=== PATIENT | female | born 1990 | race Caucasian/White ===

== ENCOUNTER 2021-05-04 12:24 | Emergency (ER) | payer SELFPAY ==
[2021-05-04 12:35] VITALS: BP 106/71; PULSE 82; RESP 18; TEMP 36.9; O2SAT 97; BMI 27.1
--- NOTE | 2021-05-04 13:12 | ED_ITS ---
HPI - Abdominal Pain General: Chief Complaint: Abdominal Pain Stated Complaint: COVID +, sharp stomach pains Time Seen by Provider: 05/04/21 13:12 History of Present Illness: HPI narrative: Ms. Higuera is a 31-year-old lady with past medical history of migraines and recent diagnosis of COVID-19 who presents to the emergency department due to abdominal pain. She first started having fairly typical Covid symptoms approximately 1 week ago and tested positive at [facility]. Approximately 4 days ago she developed gradual onset worsening epigastric abdominal pain associated with diarrhea and nausea. She describes the vomit as nonbloody however it is foamy. She has tried home medications without significant relief. Her symptoms are now moderate to severe in intensity. She still has cough and generalized malaise however the abdominal discomfort is what brought her in today. Her symptoms are worse with movement. She has tried home treatments including Zofran with only minimal relief. No other specific exacerbating or relieving factors that she identifies. She does have a history of abdominal surgeries with bilateral tubal ligation. She has also had a tummy tuck . Review of Systems General: Reports: 10 or more systems reviewed and unremarkable except in HPI and below Narrative: CONSTITUTIONAL: denies fever, fatigue, weakness EYES - denies pain, denies loss of vision EARS - denies ear issues. NOSE - denies congestion or rhinorrhea. THROAT - denies sore throat or difficulty swallowing. CARDIOVASCULAR - denies chest pain and palpitations RESPIRATORY - denies shortness of breath and cough GASTROINTESTINAL -see HPI GENITOURINARY - denies dysuria or urinary frequency MUSCULOSKELETAL- denies deformity or pain SKIN - denies rashes or new changed skin lesions NEUROLOGIC - denies focal weakness or sensory changes HEMATOLOGIC/LYMPHATIC - denies easy bruising or lymphadenopathy. Physical Exam Narrative: EXAM NARRATIVE: GENERAL/CONSTITUTIONAL - well-appearing. Discomfo rt visible due to pain. Eyes - PERRL, no conjunctival injection ENMT - Atraumatic external nose and ears. Moist mucous membranes NECK - supple. trachea midline CARDIOVASCULAR - regular rate and rhythm. Peripheral pulses 2+ and equal RESPIRATORY -clear to auscultation bilaterally. No retractions or accessory muscle use. ABDOMEN/GI - there is generalized tenderness to palpation in all quadrants including to light to moderate palpation. Patient reports pain increases with percussion, no evidence of surgical abdomen however. MSK - Extremities without obvious deformity or tenderness to palpation SKIN - Warm, Dry NEURO - alert and appropriately oriented. strength and sensation intact. Moves all extremities equally. PSYCH - Appropriate mood and affect Course ED course: - Patient was seen and evaluated by me at bedside - Patient placed on cardiac monitors, IV access obtained - Initial evaluation notable for uncomfortable appearance, abdominal exam as noted above. - Labs and imaging obtained and reviewed - Fluids, analgesia given - Labs notable for leukopenia and thrombocytopenia which is commonly seen with COVID-19 as reported in history. No significant metabolic abnormality. No evidence of urinary tract infection. hCG negative. - Imaging notable for no acute abnormality to explain patient's symptoms. - Upon serial reexamination after treatment the patient was mildly improved - Based on patient history, evaluation, labs, and imaging as interpreted the most likely cause of the patient's condition is nonspecific abdominal pain which may be related to COVID-19 - The results of ED evaluation were discussed with the patient including prescriptions and/or symptomatic cares (if applicable) including appropriate and responsible use, followup plan, and return precautions. The patient verbalized understanding and felt safe for discharge. - Patient discharged in satisfactory condition. Vital Signs: Vital signs: Vital Signs Temperature 98.8 F 05/04/21 15:33 Pulse Rate 72 05/04/21 15:33 Respiratory Rate 16 05/04/21 15:33 Blood Pressure 100/62 05/04/21 15:33 Pulse Oximetry 97 05/04/21 15:33 MDM - Abdominal Pain Medical Records: Attestation: I reviewed the patient's medical records. Lab Data: Attestation: I reviewed the patient's lab results. Labs: Lab Results 05/04/21 05/04/21 05/04/21 Range/Units 13:40 13:40 13:40 WBC 2.2 L (4.0-10.0) 10^3/ uL RBC 4.90 (4.1-5.3) 10^6/u L Hgb 13.6 (11.5-15.3) g/dL Hct 42.4 (37.0-47.0) % MCV 86.5 (81-99) fl MCH 27.8 L (28.0-34.0) pg MCHC 32.1 (30.0-36.0) g/dL RDW 14.7 (12.1-15.1) % Plt Count 123 L (130-400) 10^3/c mm MPV 11.8 H (7.4-10.4) fL Neut % (Auto) 65.7 % Lymph % (Auto) 29.7 % [place] % (Auto) 4.1 % Eos % (Auto) 0.5 % Baso % (Auto) 0.0 % Neut # (Auto) 1.44 L (1.8-7.7) 10^3/u L Lymph # (Auto) 0.7 L (0.8-4.8) 10^3/u L [place] # (Auto) 0.1 L (0.2-0.9) 10^3/u L Eos # (Auto) 0.0 (0.0-0.8) 10^3/u L Baso # (Auto) 0.0 (0.0-0.1) 10^3/u L Nucleated RBC % (a uto) 0 % Nucleated RBCs # 0.0 /100WBC Sodium 139 (136-145) mmol/L Potassium 3.6 (3.5-5.1) mmol/L Chloride 103 (98-107) mmol/L Carbon Dioxide 26 (22-29) mmol/L Anion Gap 13.6 (5-19) BUN 10 (6-20) mg/dL Creatinine 0.6 (0.5-0.9) mg/dL GFR Calculation 116.6 (90-130) mL/min Glucose 91 (65-115) mg/dL Calculated Osmolal ity 287 (285-295) mOsm/k g Lactate 1.0 (0.5-2.2) mmol/L Calcium 7.9 L (8.5-10.5) mg/dL Total Bilirubin 0.4 (0.15-1.2) mg/dL AST 28 (0-32) U/L ALT 15 (0-33) U/L Alkaline Phosphata se 65 (35-105) IU/L Total Protein 7.4 (6.6-8.7) g/dL Albumin 4.1 (3.5-5.2) g/dL Globulin 3.3 (1.3-4.6) g/dL Lipase 39 (13-60) U/L HCG, Qual (Negative) Urine Color (Yellow) Urine Appearance (CLEAR) Urine pH (5-7) Ur Specific Gravit y (1.005-1.030) Urine Protein (Negative) Urine Glucose (UA) (Normal) Urine Ketones (Negative) Urine Blood (Negative) Urine Nitrate (Negative) Urine Bilirubin (Negative) Prot Sulfosalicyli c Acd (Negative) Urine Urobilinogen (Negative) mg/dL Ur Leukocyte Adriana ase (Negative) 05/04/21 05/04/21 Range/Units 13:40 13:40 WBC (4.0-10.0) 10^3/ uL RBC (4.1-5.3) 10^6/u L Hgb (11.5-15.3) g/dL Hct (37.0-47.0) % MCV (81-99) fl MCH (28.0-34.0) pg MCHC (30.0-36.0) g/dL RDW (12.1-15.1) % Plt Count (130-400) 10^3/c mm MPV (7.4-10.4) fL Neut % (Auto) % Lymph % (Auto) % [place] % (Auto) % Eos % (Auto) % Baso % (Auto) % Neut # (Auto) (1.8-7.7) 10^3/u L Lymph # (Auto) (0.8-4.8) 10^3/u L [place] # (Auto) (0.2-0.9) 10^3/u L Eos # (Auto) (0.0-0.8) 10^3/u L Baso # (Auto) (0.0-0.1) 10^3/u L Nucleated RBC % (a uto) % Nucleated RBCs # /100WBC Sodium (136-145) mmol/L Potassium (3.5-5.1) mmol/L Chloride (98-107) mmol/L Carbon Dioxide (22-29) mmol/L Anion Gap (5-19) BUN (6-20) mg/dL Creatinine (0.5-0.9) mg/dL GFR Calculation (90-130) mL/min Glucose (65-115) mg/dL Calculated Osmolal ity (285-295) mOsm/k g Lactate (0.5-2.2) mmol/L Calcium (8.5-10.5) mg/dL Total Bilirubin (0.15-1.2) mg/dL AST (0-32) U/L ALT (0-33) U/L Alkaline Phosphata se (35-105) IU/L Total Protein (6.6-8.7) g/dL Albumin (3.5-5.2) g/dL Globulin (1.3-4.6) g/dL Lipase (13-60) U/L HCG, Qual Negative (Negative) Urine Color Yellow (Yellow) Urine Appearance Clear (CLEAR) Urine pH 9 H (5-7) Ur Specific Gravit y 1.010 (1.005-1.030) Urine Protein Neg (Negative) Urine Glucose (UA) Norm (Normal) Urine Ketones 1+ H (Negative) Urine Blood Neg (Negative) Urine Nitrate Negative (Negative) Urine Bilirubin Neg (Negative) Prot Sulfosalicyli c Acd Negative (Negative) Urine Urobilinogen Neg (Negative) mg/dL Ur Leukocyte Adriana ase Negative (Negative) Discharge Plan Discharge Patient Disposition: Home Clinical Impression: Abdominal pain in female, COVID-19 Condition: Stable Prescriptions: No Action Zofran 4 mg Tablet 4 mg PO Q6H PRN (Reason: NAUSEA/VOMITING) RF: 0 Mucinex 1,200 mg Tablet Extended Release 12hr 1,200 mg PO BID RF: 0 Prevacid 30 mg capsule,delayed release(DR/EC) 30 mg PO DAILY Qty: 30 RF: 0 Carafate 1 gram tablet 1 g PO TID 28 Days Qty: 84 RF: 0 ketoconazole 2 % shampoo 1 applic TOPICAL .COMPELX RF: 0 acetaminophen [Tylenol Extra Strength] 500 mg Tablet 1,000 mg PO Q4H PRN (Reason: Pain) RF: 0 gabapentin 300 mg capsule 300 mg PO TID PRN (Reason: NERVE PAIN) RF: 0 topiramate 100 mg tablet 100 mg PO BEDTIME RF: 0 spironolactone 50 mg tablet 50 mg PO BEDTIME RF: 0 topiramate 50 mg tablet 50 mg PO DAILY RF: 0 Discharge Orders: Discharge ED (Routine); Ordered 05/04/21 Ordered By: Dickson Guerrero Discharge Diet: Advance as tolerated and Clear Liquid Discharge Activity: Resume usual activity Patient Instructions: Viral Syndrome (ED), Abdominal Pain (ED) Activity Restrictions/Additional Instructions: Thank you for visiting the emergency department. You were seen and evaluated for abdominal pain. Your labs were slightly abnormal however fairly consistent with your known COVID-[address] did not demonstrate any obvious cause of your abdominal pain. You may use [id number] medications for your symptoms however please avoid NSAIDs. I recommend a clear liquid diet for the next day and then advance slowly as tolerated. Please ensure that you are staying hydrated. Please return to the emergency department as discussed for anything that you are concerned about and feel needs emergency department evaluation. 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
[2021-05-04 13:38] VITALS: BP 100/68; PULSE 80; RESP 16; TEMP 37.1; O2SAT 99
[2021-05-04 13:52] LABS: Add Urine Microscopic? NO; Charge for UA Resulting for Rev
[2021-05-04 13:54] LABS: Eosinophils % 0.5 %; HCG Qualitative Urine. Negative (Negative); Hematocrit 42.4 % (37.0-47.0); Hemoglobin 13.6 g/dL (11.5-15.3); Lymphocytes # 0.7 10^3/uL (0.8-4.8); Lymphocytes % 29.7 %; Mean Corpuscular HGB Conc 32.1 g/dL (30.0-36.0); Mean Corpuscular Hemoglobin 27.8 pg (28.0-34.0); Mean Corpuscular Volume 86.5 fl (81-99); Mean Platelet Volume 11.8 fL (7.4-10.4); Monocytes # 0.1 10^3/uL (0.2-0.9); Monocytes % 4.1 %; Neutrophils # 1.44 10^3/uL (1.8-7.7); Neutrophils % 65.7 %; Nucleated Red Blood Cells % 0 %; Platelet Count 123 10^3/cmm (130-400); Red Cell Distribution Width 14.7 % (12.1-15.1); Urine Appearance Clear (CLEAR); Urine Color Yellow (Yellow); White Blood Count 2.2 10^3/uL (4.0-10.0)
[2021-05-04 13:55] LABS: Bilirubin Urine Neg (Negative); Blood Urine Neg (Negative); Glucose Urine UA Norm (Normal); Ketones Urine 1+ (Negative); Leukocyte Esterase Urine Negative (Negative); Nitrate Urine Negative (Negative); Protein Urine Neg (Negative); Sulfosalicylic Acid Urine Negative (Negative); Urobilinogen Urine Neg (Negative); pH Urine 9 (5-7)
[2021-05-04 13:59] VITALS: RESP 16
[2021-05-04] MEDS: lactated ringers 1,000 ML 999 ML IV (13:59)
[2021-05-04] MEDS: morphine 4 mg/mL SDV 1 mL IVP (13:59)
[2021-05-04] MEDS: lidocaine 2% viscous 15 ML, aluminum-mag hydrox-simethicon 30 ML, sucralfate oral liq 1 GM PO (14:00)
[2021-05-04] MEDS: ondansetron 2 mg/ML SDV 2 mL 4 MG IVP (14:00)
[2021-05-04 14:10] VITALS: BP 101/64; PULSE 72; RESP 16; TEMP 37.1; O2SAT 97
[2021-05-04 14:10] LABS: Alanine Aminotransferase 15 U/L (0-33); Albumin Level 4.1 g/dL (3.5-5.2); Alkaline Phosphatase 65 IU/L (35-105); Anion Gap 13.6 (5-19); Aspartate Amino Transferase 28 U/L (0-32); Blood Urea Nitrogen 10 mg/dL (6-20); Calcium 7.9 mg/dL (8.5-10.5); Carbon Dioxide 26 mmol/L (22-29); Chloride 103 mmol/L (98-107); Globulin 3.3 g/dL (1.3-4.6); Glomerular Filtration Rate 116.6 mL/min (90-130); Glucose 91 mg/dL (65-115); Lipase 39 U/L (13-60); Osmolality Calculated 287 mOsm/kg (285-295); Potassium 3.6 mmol/L (3.5-5.1); Sodium 139 mmol/L (136-145); Total Bilirubin 0.4 mg/dL (0.15-1.2); Total Protein 7.4 g/dL (6.6-8.7)
--- NOTE | 2021-05-04 14:20 | CT_ITS ---
WS: [id number] CT ABDOMEN AND PELVIS WITH CONTRAST HISTORY: epigastric abdominal pain, n/v/d TECHNIQUE: Imaging performed of the abdomen and pelvis with IV contrast. Single phase imaging of the abdomen. Coronal and sagittal reformats are submitted. All CT scans at [facility] use at [address] [facility] one of these dose optimization techniques: automated exposure control; mA and/or kV adjustment per patient size (includes targeted exams where dose is matched to clinical indication); or iterative re construction. IV CONTRAST: Omnipaque 300; 95 mL IV. Oral contrast: No DLP: 1181.83 mGy.cm COMPARISON: None available. Lower thorax: Bilateral patchy consolidations at the lung bases. There is an additional benign granul roni which is calcified in the RIGHT middle lobe. No effusions or pneumothorax. Heart is normal size. No hiatal hernia. Liver/biliary system: Normal size with no intrahepatic dilatation. Gallbladder: Normal. No gallstones or wall thickening. No pericholecystic fluid. Pancreas: Normal size pancreas and pancreatic duct. No adjacent inflammation. Spleen: Normal size spleen. No mass or infarct. Adrenal glands: Normal. Right kidney: Normal. Left kidney: Normal. Aorta: Normal. Lymphadenopathy: None. Free fluid: None. GI tract: Normal appendix. No GI tract obstruction. No mucosal thickening or edema. There is very sli ght dilatation of the proximal small bowel with fluid. Abdominal wall: Unremarkable abdominal wall. No hernia. Pelvis: Normal size uterus. No free fluid or adenopathy. Bones: Unremarkable. CT/CT abdomen pelvis w con* [id number] IMPRESSION: 1. Bilateral lower lobe scattered opacifications. Consistent with pneumonia. C orrelate with possible Covid 19 pneumonia. 2. Very mild fluid distention of the proximal small bowel with no obstruction or mucosal thickening. 3. No ascites or free air. 4. Normal appendix.
[2021-05-04] MEDS: iohexol 300 mg/mL 100 mL Btl IV (14:34)
[2021-05-04 15:33] VITALS: BP 100/62; PULSE 72; RESP 16; TEMP 37.1; O2SAT 97
== END 2021-05-04 15:36 | disposition home or self-care (01) ==
PROVIDERS: Emergency Provider Emergency Medicine
DX: U07.1 COVID-19 (principal); R10.9 Unspecified abdominal pain
CPT/HCPCS: 74177; 80053; 81003; 81025; 83605; 83690; 85025; 96361; 96374; 96375; 99284; J2270; J2405; Q9967

== ENCOUNTER 2021-05-05 18:04 | Emergency (ER) | payer SELFPAY ==
[2021-05-05 18:33] VITALS: BP 114/78; PULSE 77; RESP 18; TEMP 37.4; O2SAT 99; BMI 26.4
--- NOTE | 2021-05-05 20:47 | ED_ITS ---
HPI - Nausea/Vomiting/Diarrhea General: Chief complaint: Nausea/Vomiting/Diarrhea Stated complaint: COVID +(X 8 DAYS):STOMACH PAIN; UNABLE TO EAT Time Seen by Provider: 05/05/21 20:16 History of Present Illness: HPI Narrative: 31-year-old female who was here ye sterday with epigastric pain. She has a history of COVID-19, and is on day 8 of symptoms she states she is not had a fever in 4 days or so. She is not short of breath. Her main complaint is epigastric pain, and inability to eat. When she does eat or drink, she gets a burning pain in her epigastrium and periumbilical region, and has a tendency to throw up. She states that she is lost 20 pounds in the last several days. MD elicited complaint: nausea, vomiting and abdominal pain Onset (ago): day(s) Description of vomiting: food contents Associated nausea: Yes Associated abdominal pain: Yes Location of pain: Epigastric and Periumbilical Radiation: diffuse Pain consistency: constant Severity: moderate Quality: other Exacerbating factors: eating Relieving factors: none Associated symtoms: Reports fatigue, nausea and weakness; Denies bloating, chest pain, diaphoresis, fevers/chills, headache(s) or short of breath Review of Systems Const: Reports: fatigue; Denies: fever(s), chills or diaphoresis Card: Denies: chest pain or dyspnea on exertion Resp: Denies: dyspnea GI: Reports: nausea; Denies: bloating Neuro: Denies: headache(s) Physical Exam Const: GENERAL APPEARANCE: well developed ORIENTATION/CONSCIOUSNESS: Yes oriented to person, Yes oriented to place and Yes oriented to time HENMT: COMMON NORMALS: normocephalic HEAD & SCALP: normocephalic Eye: COMMON NORMALS: Equal, round and reactive pupils present, EOMs intact bilaterally and conjunctivae normal EYELID: eyelids normal CONJUNCTIVA: Yes conjunctivae normal PUPIL: Yes Equal, round and reactive pupils present Neck/C-Spine: COMMON NORMALS: full ROM CERVICAL SPINE: No Cervical spine t enderness Chest: COMMONS NORMALS: normal inspection of the chest CHEST: No tenderness Resp: COMMON NORMALS: clear to auscultation bilaterally EFFORT & INSPECTION: No tachypneic, No respiratory distress, No retractions, No uses accessory muscles and No tracheal deviation AUSCULTATION: clear to auscultation bilaterally, no rhonchi, no wheezes and lung sounds not diminished Cardio: COMMON NORMALS: regular rate and regular rhythm RATE: regular rate RHYTHM: regular rhythm HEART SOUNDS: no murmurs PERIPHERAL PULSES: radial pulses present GI: INSPECTION: No abdominal distension AUSCULTATION: No Hyperactive bowel sounds present and No Hypoactive bowel sounds present PALPATION: Yes Tenderness to palpation present (GI) (epigastric), Yes Guarding due to palpation present (GI) and No Rigid due to palpation PERCUSSION: no dullness to percussion and no tympanic to percussion Neuro: SENSORIUM/ORIENTATION: Yes oriented to person, Yes oriented to place and Yes oriented to time Psych: COMMON NORMALS: mental status grossly normal Skin: COMMON NORMALS: no rashes or lesions noted GENERAL SKIN EXAM: no rashes or lesions noted Course Vital Signs: Vital signs: Vital Signs Temperature 99.3 F 05/05/21 18:33 Pulse Rate 74 05/05/21 22:09 Respiratory Rate 18 05/05/21 22:09 Blood Pressure 116/72 05/05/21 22:09 Pulse Oximetry 98 05/05/21 22:09 MDM - Nausea/Vomiting/Diarrhea MDM Narrative: Medical decision making narrative: Patient here yesterday for epigastric pain following try to eat or drink. She is back today with same symptoms. She had used a GI cocktail yesterday with some success, but symptoms did return. Labs are stable. She will be treated with another dose of GI cocktail here, and at home, as well as Carafate and Prevacid to follow that. Lab Data: Labs: Lab Results 05/05/21 05/05/21 Range/Units 21:00 21:00 WBC 2.4 L (4.0-10.0) 10^3/ uL RBC 4.73 (4.1-5.3) 10^6/u L Hgb 13.1 (11.5-15.3) g/dL Hct 41.6 (37.0-47.0) % MCV 87.9 (81-99) fl MCH 27.7 L (28.0-34.0) pg MCHC 31.5 (30.0-36.0) g/dL RDW 14.8 (12.1-15.1) % Plt Count 125 L (130-400) 10^3/c mm MPV 12.4 H (7.4-10.4) fL Neut % (Auto) 62.4 % Lymph % (Auto) 32.2 % [place] % (Auto) 4.6 % Eos % (Auto) 0.4 % Baso % (Auto) 0.0 % Neut # (Auto) 1.49 L (1.8-7.7) 10^3/u L Lymph # (Auto) 0.8 (0.8-4.8) 10^3/u L [place] # (Auto) 0.1 L (0.2-0.9) 10^3/u L Eos # (Auto) 0.0 (0.0-0.8) 10^3/u L Baso # (Auto) 0.0 (0.0-0.1) 10^3/u L Nucleated RBC % (a uto) 0 % Nucleated RBCs # 0.0 /100WBC Sodium 141 (136-145) mmol/L Potassium 3.6 (3.5-5.1) mmol/L Chloride 103 (98-107) mmol/L Carbon Dioxide 23 (22-29) mmol/L Anion Gap 18.6 (5-19) BUN 9 (6-20) mg/dL Creatinine 0.7 (0.5-0.9) mg/dL GFR Calculation 97.6 (90-130) mL/min Glucose 82 (65-115) mg/dL Calculated Osmolal ity 290 (285-295) mOsm/k g Calcium 8.3 L (8.5-10.5) mg/dL Total Bilirubin 0.4 (0.15-1.2) mg/dL AST 25 (0-32) U/L ALT 14 (0-33) U/L Alkaline Phosphata se 70 (35-105) IU/L C-Reactive Protein 4.3 (0.0-4.9) mg/L Total Protein 6.8 (6.6-8.7) g/dL Albumin 3.8 (3.5-5.2) g/dL Globulin 3.0 (1.3-4.6) g/dL Lipase 33 (13-60) U/L Discharge Plan Discharge Patient Disposition: Home Clinical Impression: COVID-19 Gastritis Qualifiers: Gastritis type: unspecified gastritis Chronicity: acute Gastritis bleeding: without bleeding Qualified Code(s): K29.00 - Acute gastritis without bleeding Condition: Stable Prescriptions: New Prevacid 30 mg capsule,delayed release(DR/EC) 30 mg PO DAILY Qty: 30 RF: 0 Carafate 1 gram tablet 1 g PO TID 28 Days Qty: 84 RF: 0 No Action Zofran 4 mg Tablet 4 mg PO Q6H PRN (Reason: NAUSEA/VOMITING) RF: 0 Mucinex 1,200 mg Tablet Extended Release 12hr 1,200 mg PO BID RF: 0 ketoconazole 2 % shampoo 1 applic TOPICAL .COMPELX RF: 0 acetaminophen [Tylenol Extra Strength] 500 mg Tablet 1,000 mg PO Q4H PRN (Reason: Pain) RF: 0 gabapentin 300 mg capsule 300 mg PO TID PRN (Reason: NERVE PAIN) RF: 0 topiramate 100 mg tablet 100 mg PO BEDTIME RF: 0 spironolactone 50 mg tablet 50 mg PO BEDTIME RF: 0 topiramate 50 mg tablet 50 mg PO DAILY RF: 0 Discharge Orders: Discharge ED (Routine); Ordered 05/05/21 Ordered By: Navneet Song Discharge Diet: Advance as tolerated and Clear Liquid Discharge Activity: Limit activity as instructed Activity Restrictions/Additional Instructions: Take the doses of GI cocktail every 6-8 hours. Following that, you may start the medication you were prescribed. It should help with your ability to keep fluids and food down. Start with a liquid diet, advance as tolerated from there. Return for worsening problems despite treatment. 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
[2021-05-05 21:23] LABS: Eosinophils % 0.4 %; Hematocrit 41.6 % (37.0-47.0); Hemoglobin 13.1 g/dL (11.5-15.3); Lymphocytes # 0.8 10^3/uL (0.8-4.8); Lymphocytes % 32.2 %; Mean Corpuscular HGB Conc 31.5 g/dL (30.0-36.0); Mean Corpuscular Hemoglobin 27.7 pg (28.0-34.0); Mean Corpuscular Volume 87.9 fl (81-99); Mean Platelet Volume 12.4 fL (7.4-10.4); Monocytes # 0.1 10^3/uL (0.2-0.9); Monocytes % 4.6 %; Neutrophils # 1.49 10^3/uL (1.8-7.7); Neutrophils % 62.4 %; Nucleated Red Blood Cells % 0 %; Platelet Count 125 10^3/cmm (130-400); Red Blood Count 4.73 10^6/uL (4.1-5.3); Red Cell Distribution Width 14.8 % (12.1-15.1); White Blood Count 2.4 10^3/uL (4.0-10.0)
[2021-05-05] MEDS: lidocaine 2% viscous 15 ML, aluminum-mag hydrox-simethicon 30 ML, sucralfate oral liq 1 GM PO ×2 (21:36→22:06)
[2021-05-05] MEDS: sodium chloride 0.9% 1,000 ML 999 ML IV (21:36)
[2021-05-05] MEDS: metoclopramide 5 mg/mL SDV 2 mL 10 MG IVP (21:36)
[2021-05-05 21:46] LABS: Alanine Aminotransferase 14 U/L (0-33); Albumin Level 3.8 g/dL (3.5-5.2); Alkaline Phosphatase 70 IU/L (35-105); Anion Gap 18.6 (5-19); Aspartate Amino Transferase 25 U/L (0-32); Blood Urea Nitrogen 9 mg/dL (6-20); C Reactive Protein 4.3 mg/L (0.0-4.9); Calcium 8.3 mg/dL (8.5-10.5); Carbon Dioxide 23 mmol/L (22-29); Chloride 103 mmol/L (98-107); Glomerular Filtration Rate 97.6 mL/min (90-130); Glucose 82 mg/dL (65-115); Lipase 33 U/L (13-60); Osmolality Calculated 290 mOsm/kg (285-295); Potassium 3.6 mmol/L (3.5-5.1); Sodium 141 mmol/L (136-145); Total Bilirubin 0.4 mg/dL (0.15-1.2); Total Protein 6.8 g/dL (6.6-8.7)
[2021-05-05 22:09] VITALS: BP 116/72; PULSE 74; RESP 18; O2SAT 98
== END 2021-05-05 22:14 | disposition home or self-care (01) ==
PROVIDERS: Emergency Provider Emergency Medicine
DX: U07.1 COVID-19 (principal); K29.00 Acute gastritis without bleeding
CPT/HCPCS: 80053; 83690; 85025; 86140; 96361; 96374; 99283; J2765; J7030